=== PATIENT | male | born 1975 | race Caucasian/White ===

== ENCOUNTER 2018-08-31 07:15 | Emergency (ER) | payer OTHER ==
[~2018-08-31] VITALS: Ht 172.7 cm; Wt 82.6 kg
--- NOTE | 2018-08-31 07:28 | NUR ---
DR. MCCONNELL AT BEDSIDE FOR EVAL.
[2018-08-31] MEDS ORDERED: methylPREDNISolone SOD SUCC 40 MG/ML VIAL ONE (07:36)
[2018-08-31] MEDS ORDERED: diphenhydrAMINE HCL 50 MG/ML VIAL ONE (07:36)
--- NOTE | 2018-08-31 07:40 | NUR ---
PT IV LINE ESTABLISHED, BLOOD DRAWNED AND SENT TO LAB.
[2018-08-31 07:46] LABS: BASOPHILS # (AUTO) 0.1 /CMM (0.0-0.2); BASOPHILS % (AUTO) 0.5 % (0.0-2.0); EOSINOPHILS % (AUTO) 0.7 % (0.0-6.0); HEMATOCRIT 40 % (39-51); HEMOGLOBIN 13.8 g/dL (13.5-17.5); LYMPHOCYTES % (AUTO) 28.5 % (20.0-44.0); MEAN CORPUSCULAR HGB CONC 34 g/dl (31.0-36.0); MEAN CORPUSCULAR VOLUME 86 fL (80-96); MONOCYTES # (AUTO) 0.5 /CMM (0.1-1.30); MONOCYTES % (AUTO) 4.2 % (2.0-12.0); NEUTROPHILS % (AUTO) 66.1 % (43.0-81.0); PLATELET COUNT (AUTO) 219 /CMM (150-450); RED BLOOD CELL COUNT(AUTO) 4.66 MIL/uL (4.5-6.0); WHITE BLOOD COUNT (AUTO) 10.6 K/uL (4.3-11.0)
[2018-08-31 07:53] LABS: CALCIUM, SERUM 8.9 mg/dL (8.5-10.1); POTASSIUM 3.7 mmol/L (3.5-5.1)
[2018-08-31 07:58] LABS: ALBUMIN 3.6 g/dL (3.4-5.0); BILIRUBIN,DIRECT 0.1 mg/dL (0.0-0.2); BILIRUBIN,TOTAL 0.4 mg/dL (0.2-1.0); TOTAL PROTEIN, SERUM 7.7 g/dL (6.4-8.2)
[2018-08-31] MEDS ORDERED: methylPREDNISolone SOD SUCC 40 MG/ML VIAL IV ONE (08:00)
[2018-08-31] MEDS ORDERED: diphenhydrAMINE HCL 50 MG/ML VIAL IV ONE (08:00)
[2018-08-31] MEDS ORDERED: IV NS 0.9% 500 ML BAG IV ONE (08:00)
--- NOTE | 2018-08-31 09:28 | NUR ---
IV removed. Catheter intact and site benign. Pressure and 4x4 applied to site. No bleeding noted. Patient discharged to home in stable condition. Written and verbal after care instructions given. Patient verbalizes understanding of instruction.
[2018-08-31 09:29] VITALS: BP 124/75
== END 2018-08-31 09:30 | disposition home or self-care (01) ==
LOC: ER 07:19
DX: T63.481A Toxic effect of venom of other arthropod, accidental (unintentional), initial encounter (principal); Z98.890 Other specified postprocedural states; Y92.89 Other specified places as the place of occurrence of the external cause
CPT/HCPCS: 36415; 80048; 80076; 85025; 96374; 96375; 99283; J1200; J2920; J7040

== ENCOUNTER 2018-09-03 02:01 | Emergency (ER) | payer OTHER ==
[~2018-09-03] VITALS: Ht 172.7 cm; Wt 81.6 kg
--- NOTE | 2018-09-03 02:18 | NUR ---
PT BIB FRIEND C/C +SOB, +DIZZY, +N/-V, TINGLING BILAT UPPER EXTREMITY.RASH NOTED ON BODY. BENADRYL AND PREDNISONE. PT ON MONITOR IN BED 5 WITH FRIEND AT BEDSIDE. PT 100% O2 SAT ON RA. WILL CONTINUE TO MONITOR.
--- NOTE | 2018-09-03 03:01 | NUR ---
AT BEDSIDE FOR EVAL
[2018-09-03] MEDS ORDERED: diphenhydrAMINE HCL 50 MG/ML VIAL ONE (03:10)
[2018-09-03] MEDS ORDERED: DEXAMETHASONE SOD PHOSPHATE 10 MG/ML VIAL ONE (03:10)
[2018-09-03] MEDS ORDERED: FAMOTIDINE/PF INJ 20 MG/2 ML VIAL IV ONE ×2 (03:11→03:30)
[2018-09-03] MEDS ORDERED: LORAZEPAM INJ 2 MG/ML VIAL ONE (03:11)
--- NOTE | 2018-09-03 03:16 | NUR ---
BLOOD DRAWN AND GIVEN TO LAB
--- NOTE | 2018-09-03 03:20 | NUR ---
RADIOLOGY AT BEDSIDE FOR XRAY
--- NOTE | 2018-09-03 03:28 | NUR ---
TECH AT BEDSIDE FOR EKG
[2018-09-03] MEDS ORDERED: DEXAMETHASONE SOD PHOSPHATE 10 MG/ML VIAL IV ONE (03:30)
[2018-09-03] MEDS ORDERED: diphenhydrAMINE HCL 50 MG/ML VIAL IV ONE (03:30)
[2018-09-03] MEDS ORDERED: LORAZEPAM INJ 2 MG/ML VIAL IV ONE (03:30)
[2018-09-03 03:36] LABS: CARBON DIOXIDE 26 mmol/L (21-32); CHLORIDE 100 mmol/L (98-107); GLUCOSE 107 mg/dL (74-106); POTASSIUM 3.5 mmol/L (3.5-5.1); SODIUM SERUM 138 mmol/L (136-145); UREA NITROGEN, BLOOD 19 mg/dL (7-18)
[2018-09-03 03:51] LABS: EOSINOPHILS % (AUTO) 0.3 % (0.0-6.0); HEMATOCRIT 42 % (39-51); HEMOGLOBIN 14.4 g/dL (13.5-17.5); LYMPHOCYTES # (AUTO) 2.3 /CMM (0.8-4.8); LYMPHOCYTES % (AUTO) 44.5 % (20.0-44.0); MEAN CORPUSCULAR HGB CONC 34 g/dl (31.0-36.0); MEAN CORPUSCULAR VOLUME 86 fL (80-96); MONOCYTES # (AUTO) 0.1 /CMM (0.1-1.30); MONOCYTES % (AUTO) 1.6 % (2.0-12.0); NEUTROPHILS # (AUTO) 2.8 /CMM (1.8-8.9); NEUTROPHILS % (AUTO) 53.6 % (43.0-81.0); PLATELET COUNT (AUTO) 230 /CMM (150-450); RED BLOOD CELL COUNT(AUTO) 4.91 MIL/uL (4.5-6.0); WHITE BLOOD COUNT (AUTO) 5.2 K/uL (4.3-11.0)
[2018-09-03 03:57] LABS: CALCIUM, SERUM 8.3 mg/dL (8.5-10.1)
--- NOTE | 2018-09-03 04:07 | NUR ---
PT RESTING COMFORTABLY IN BED WITH FRIEND AT BEDSIDE. WILL CONTINUE TO MONITOR.
[2018-09-03 05:06] VITALS: BP 114/62
--- NOTE | 2018-09-03 05:48 | NUR ---
IV removed. Catheter intact and site benign. Pressure and 4x4 applied to site. No bleeding noted.Patient discharged to home in stable condition. Written and verbal after care instructions given. Patient verbalizes understanding of instruction. PT AMBULATORY WITH STEADY GAIT.
== END 2018-09-03 05:49 | disposition home or self-care (01) ==
LOC: ER 02:03
DX: F41.0 Panic disorder [episodic paroxysmal anxiety] (principal); L50.0 Allergic urticaria; R20.2 Paresthesia of skin; M79.622 Pain in left upper arm; M79.621 Pain in right upper arm; R00.2 Palpitations; R06.00 Dyspnea, unspecified; F41.9 Anxiety disorder, unspecified; Z98.890 Other specified postprocedural states
CPT/HCPCS: 36415; 71045; 80048; 84484; 85025; 93005 ×2; 96374; 96375; 99284; J1100; J1200; J2060; J3490